=== PATIENT | female | born 1960 | race Caucasian/White ===

== ENCOUNTER 2023-05-03 10:59 | Emergency (ER) | payer SELFPAY ==
[2023-05-03 11:25] VITALS: BP 133/65; PULSE 88; RESP 18; TEMP 37.1; O2SAT 99; BMI 22.8
--- NOTE | 2023-05-03 11:37 | ED_ITS ---
HPI - Extremity Problem <Moses Whiting PA-C - Last Filed: 05/03/23 12:02> General Chief complaint: Extremity Problem,Nontraumatic Stated complaint: pain left hip and leg Time Seen by Provider: 05/03/23 11:37 Source: patient Mode of arrival: Ambulatory History of Present Illness HPI Narrative: This is a 62-year-old female presents to the emergency department due to chronic left lower extremity pain for the last year. She states the pain began in her left buttock area radiating down to her left knee as well as left ankle. She denies any significant numbness or weakness although she does state that her left lower extremity movement is decreased secondary to pain. She denies any trauma to the area. States that the left lower extremity feels ?tight?. States that she was not able to stretch her leg as much as she has been before. Reports a mild amount of swelling to the left ankle over the last couple of days. Denies any posterior calf tenderness to palpation or left lower extremity swelling otherwise. Denies any fevers, nausea, vomiting, or any other concerning signs or symptoms. No urinary or bowel incontinence. Denies any saddle paresthesias. Related Data Previous Rx's Medication Instructions Recorded cyclobenzaprine 10 mg tablet 10 mg PO TID #30 tabs 05/03/23 methylprednisolone 4 mg tablets in See Rx Instructions PO .COMPLEX 05/03/23 a dose pack (Medrol (Cory)) #21 ea Allergies Allergy/AdvReac Type Severity Reaction Status Date / Time No Known Drug Allergies Allergy Verified 05/03/23 11:25 Review of Systems <Moses Whiting PA-C - Last Filed: 05/03/23 12:02> Review of Systems Narrative: GENERAL: Denies chills, fatigue, malaise, fever, sweats. HEENT: Denies sinus pain, ear pain, sore throat, difficulty swallowing, dizziness. RESPIRATORY: Denies dyspnea, cough, wheezing, hemoptysis, sputum. CARDIOVASCULAR: Denies chest pain, palpitations, orthopnea, edema, GASTROINTESTINAL: Denies nausea, vomiting, abdominal pain, diarrhea, constipation, melena. : Denies dysuria, frequency, incontinence, hematuria, urinary retention. MUSCULOSKELETAL: Reports left lower extremity pain. SKIN: Denies rash, skin lesions, or other NEUROLOGIC: Denies weakness, headache, numbness, change in speech, confusion, seizures, incoordination. PSYCHIATRIC: No concerning psychosocial issues. 12 point review of systems is negative except for those stated above Patient History <Moses Whiting PA-C - Last Filed: 05/03/23 12:02> Social History Smoking Status: Current every day smoker Smoking Status: Current every day smoker tobacco type: cigarettes alcohol intake frequency: a few times a week Substance Use Type: does not use Exam <Moses Whiting PA-C - Last Filed: 05/03/23 12:02> Narrative Exam Narrative: GENERAL: Well-developed patient, in mild distress. HEAD: Atraumatic. Normocephalic. EYES: Pupils equal round and reactive. Extraocular motions intact. No scleral icterus. No injection or drainage. ENT: Nose without bleeding, purulent drainage. Throat without erythema, tonsillar hypertrophy or exudate. Airway patent. NECK: Trachea midline. Non tender CARDIOVASCULAR: Regular rate and rhythm without murmurs, gallops, or rubs. RESPIRATORY: Clear to auscultation. Breath sounds equal bilaterally. No wheezes, rales, or rhonchi. GASTROINTESTINAL: Abdomen soft, non-tender, nondistended. EXTREMITIES: No edema or joint tenderness. BACK: Nontender without deformity or crepitance. No flank tenderness. NEURO: AOx3. SKIN: No rash or erythema of visible areas Initial Vital Signs Initial Vital Signs: Vital Signs Temperature 98.8 F 05/03/23 11:25 Pulse Rate 88 05/03/23 11:25 Respiratory Rate 18 05/03/23 11:25 Blood Pressure 133/65 05/03/23 11:25 Pulse Oximetry 99 05/03/23 11:25 Oxygen Delivery Method Room Air 05/03/23 11:25 <Melly Kaur DO - Last Filed: 05/04/23 07:49> Initial Vital Signs Initial Vital Signs: Vital Signs Temperature 98.8 F 05/03/23 11:25 Pulse Rate 88 05/03/23 11:25 Respiratory Rate 18 05/03/23 11:25 Blood Pressure 133/65 05/03/23 11:25 Pulse Oximetry 99 05/03/23 11:25 Oxygen Delivery Method Room Air 05/03/23 11:25 Course <Moses Whiting PA-C - Last Filed: 05/03/23 12:02> Vital Signs Vital signs: Vital Signs - 8 hr 05/03/23 11:25 Temperature 98.8 F Pulse Rate 88 Respiratory Rate 18 Blood Pressure 133/65 Pulse Oximetry 99 Oxygen Delivery Method Room Air <Melly Kaur DO - Last Filed: 05/04/23 07:49> Vital Signs Vital signs: Vital Signs - 8 hr 05/03/23 11:25 Temperature 98.8 F Pulse Rate 88 Respiratory Rate 18 Blood Pressure 133/65 Pulse Oximetry 99 Oxygen Delivery Method Room Air MDM - Extremity (Nontraumatic) <Moses Whiting PA-C - Last Filed: 05/03/23 12:02> MDM Narrative Medical decision making narrative: MDM * differential diagnosis includes but not limited to sciatica, fracture, soft tissue injury * Prior records reviewed: Patient has not been here in the past * My lab interpretation: None obtained * My imgaing interpretation: None obtained * Clinical Decision Rules/Scores evaluated: None * Independent discussions with: None ED Course: This is a 62-year-old female presents to the emergency department due to chronic left lower extremity pain suspected to be sciatica although the patient feels that it is ?something else?. She denies any left calf pain or swelling concerning for any kind of DVT. There were no acute injuries. Shared decision-making utilized and no x-rays ordered. Patient strongly requested MRI of the left knee and left hip to ?rule out soft tissue injuries?. Discussed with the patient the none urgent need for this MRI and stated that this would best be done outpatient. She declined a Toradol injection but would like a prescription for onset relaxants and steroids. She also strongly requested a referral to Orthopedics. She was not from here, she was from [place], states that she was unable to find a primary care provider in [place]. Shared Decision Making: Discussed plan with the patient was comfortable with the plan. Social Considerations: None Disposition: Discharged to home Discharge Plan Departure Patient Disposition: Home Clinical Impression: Acute pain of left lower extremity Activity Restrictions/Additional Instructions: Thank you for coming to the [facility] Emergency Department today. As we discussed I do suspect that this is soft tissue in nature. Please follow up with the orthopedist who maybe able to help with your pain and further investigate it. Please take these muscle relaxants and steroids as prescribed as the maybe able to help with your pain. I also recommend he follow up with physical therapy as they are great options tissue exercises that will help as well. I sent your medications to [facility] in [place]. I hope you feel better soon. Please follow up with your primary care provider within a week if your symptoms continue. If you do not have a primary care provider please contact the [facility] Resource line at [phone]. They will ask some questions about your medical history and help you get set up with a provider in the community. Prescriptions: New cyclobenzaprine 10 mg tablet 10 mg PO TID Qty: 30 0RF methylprednisolone [Medrol (Cory)] 4 mg tablets,dose pack See Rx Instructions .ROUTE .COMPLEX Qty: 21 0RF Rx Instructions: orally per package directions Referrals: Candace Tompkins MD [Physician] - (Pt strongly requesting ortho referral for chronic LLE pain. ) Miscellaneous,MD Hari [Primary Care Provider] - Stand Alone Forms: Patient Portal/API ED Sign-out <Melly Kaur DO - Last Filed: 05/04/23 07:49> Cosign ED Attending Jamil Attestation: I was available for consultation.
== END 2023-05-03 12:09 | disposition home or self-care (01) ==
PROVIDERS: Emergency Provider Physician Assistant Medical
DX: M79.605 Pain in left leg (principal)
CPT/HCPCS: 99281